=== PATIENT | male | born 1960 | race Caucasian/White ===

== ENCOUNTER 2017-06-29 16:41 | Emergency (ER) | payer SELFPAY ==
[~2017-06-29] VITALS: Ht 172.7 cm; Wt 92.7 kg
[~2017-06-29 16:41] MED LIST: MEDR4PAK PO; VIST25CA PO; ZITHTAB PO
[2017-06-29 16:54] VITALS: BP 169/82; PULSE 95; RESP 18; TEMP 98.7; O2SAT 96
[2017-06-29 17:04] VITALS: RESP 18; O2SAT 97
[2017-06-29 17:04] LABS: AUTOMATED NEUTROPHIL # 5.4 TH/MM3 (1.8-7.7); EOSINOPHIL % 1.9 % (0.0-4.0); HEMATOCRIT 48.5 % (39.0-51.0); HEMO FLAGS DIFF FINAL; LYMPH % 21.9 % (9.0-44.0); LYMPHOCYTE # 1.7 TH/MM3 (1.0-4.8); MEAN CELL VOLUME 85.7 FL (80.0-100.0); MEAN CORPUSCULAR HEMOGLOBIN 27.7 PG (27.0-34.0); MEAN CORPUSCULAR HGB CONC 32.3 % (32.0-36.0); MONO % 6.9 % (0.0-8.0); NEUT % 68.3 % (16.0-70.0); PLATELET COUNT 234 TH/MM3 (150-450); RED BLOOD COUNT 5.66 MIL/MM3 (4.50-5.90); RED CELL DISTRIBUTION WIDTH 12.6 % (11.6-17.2); WHITE BLOOD COUNT 7.9 TH/MM3 (4.0-11.0)
[2017-06-29 17:05] LABS: BASOPHIL # 0.1 TH/MM3 (0-0.2); EOSINOPHIL # 0.2 TH/MM3 (0-0.4)
[2017-06-29 17:13] LABS: CHLORIDE 104 MEQ/L (98-107); POTASSIUM 3.8 MEQ/L (3.5-5.1); SODIUM (NA) 138 MEQ/L (136-145)
[2017-06-29 17:17] LABS: ANION GAP 11 MEQ/L (5-15); BICARBONATE 22.6 MEQ/L (21.0-32.0); BLOOD UREA NITROGEN 19 MG/DL (7-18)
[2017-06-29 17:19] LABS: APTT (PATIENT) 25.7 SEC (24.3-30.1); PROTHROMBIN TIME - PATIENT 11.4 SEC (9.8-11.6)
[2017-06-29 17:20] LABS: ALT (GPT) 31 U/L (12-78); AST (GOT) 27 U/L (15-37); GLOMERULAR FILTRATION RATE 48 ML/MIN (>89)
[2017-06-29 17:21] LABS: TOTAL BILIRUBIN ADULT 0.8 MG/DL (0.2-1.0)
[2017-06-29 17:23] LABS: ALKALINE PHOSPHATASE 51 U/L (45-117); CREATINE KINASE 229 U/L (39-308)
--- NOTE | 2017-06-29 17:23 | RADRPT ---
EXAM DATE/TIME: 06/29/2017 17:10 [place] COMPARISON: No previous studies available for comparison. INDICATIONS : Chest pressure. MEDICAL HISTORY : Carcinoma, prostatic. SURGICAL HISTORY : Prostatectomy. Fusion, cervical. Knee surgery ENCOUNTER: Initial ACUITY: 1 day PAIN SCORE: 2/10 LOCATION: Bilateral chest FINDINGS: A single view of the chest demonstrates the lungs to be symmetrically aerated without evidence of mas s, infiltrate or effusion. The cardiomediastinal contours are unremarkable. Osseous structures are intact. CONCLUSION: No acute disease. Tulio Narvaez MD FACR on June 29, 2017 at 17:22 Board Certified Radiologist. This report was verified electronically.
--- NOTE | 2017-06-29 17:34 | PD ---
HPI Chief Complaint: Chest Pain Time Seen by Provider: 16:51 Travel History International Travel<30 days: No Contact w/Intl Traveler<30days: No Traveled to known affect area: No History of Present Illness HPI 57-year-old male complains of chest pain. Patient states that the chest pain started about an hour prior coming to the emergency room. Patient states the pain is substernal chest pressure with radiation to the jaw. Patient was working the jaw when that happened. Patient states that she has diaphoresis with the chest pain. Patient states that the chest pain got better since then. Patient took aspirin 325 mg, 2 tablets by mouth prior to arrival. Patient denies history hypertension or diabetes. Patient has history hyperlipidemia. Patient is a nonsmoker. Patient has family history of heart disease. On a scale from 1-10 the pain is a 1 now. Patient denies any alcohol or illicit drug abuse. Patient denies any history of chest pain in the past. PFSH Past Medical History Medical History: Denies Significant Hx Influenza Vaccination: No Past Surgical History Genitourinary Surgery: Yes (PROSTATECTOMY) Social History Alcohol Use: No Tobacco Use: No Substance Use: No Allergies-Medications (Allergen,Severity, Reaction): Coded Allergies: morphine (Unverified Allergy, Severe, slow heart reate, 06/29/17) penicillin G (Unverified Allergy, Severe, throat swelling / hives, 06/29/17) Reported Meds & Prescriptions Reported Meds & Active Scripts Active Review of Systems General / Constitutional: No: Fever Eyes: No: Visual changes HENT: No: Headaches Cardiovascular: Positive: Chest Pain or Discomfort Respiratory: No: Shortness of Breath Gastrointestinal: No: Abdominal Pain Genitourinary: No: Dysuria Musculoskeletal: No: Pain Skin: No Rash Neurologic: No: Weakness Psychiatric: No: Depression Endocrine: No: Polydipsia Hematologic/Lymphatic: No: Easy Bruising Physical Exam Narrative GENERAL: Well-nourished, well-developed patient. SKIN: Focused skin assessment warm/dry. HEAD: Normocephalic. EYES: No scleral icterus. No injection or drainage. NECK: Supple, trachea midline. No JVD or lymphadenopathy. CARDIOVASCULAR: Regular rate and rhythm without murmurs, gallops, or rubs. RESPIRATORY: Breath sounds equal bilaterally. No accessory muscle use. GASTROINTESTINAL: Abdomen soft, non-tender, nondistended. MUSCULOSKELETAL: No cyanosis, or edema. BACK: Nontender without obvious deformity. No CVA tenderness. Neurologic exam normal. Data Data Last Documented VS Vital Signs Date Time Temp Pulse Resp B/P (MAP) Pulse Ox O2 Delivery O2 Flow Rate FiO2 06/29/17 17:04 18 97 Room Air 06/29/17 16:57 95 06/29/17 16:54 98.7 169/82 (111) Orders Orders Electrocardiogram (06/29/17 16:56) Complete Blood Count With Diff (06/29/17 16:56) Comprehensive Metabolic Panel (06/29/17 16:56) Creatine Kinase (Cpk) (06/29/17 16:56) Troponin I (06/29/17 16:56) Prothrombin Time / Inr (Pt) (06/29/17 16:56) Act Partial Throm Time (Ptt) (06/29/17 16:56) Chest, Single Ap (06/29/17 16:56) Iv Access Insert/Monitor (06/29/17 16:56) Ecg Monitoring (06/29/17 16:56) Oximetry (06/29/17 16:56) Labs Laboratory Tests Test 06/29/17 16:55 White Blood Count 7.9 TH/MM3 Red Blood Count 5.66 MIL/MM3 Hemoglobin 15.7 GM/DL Hematocrit 48.5 % Mean Corpuscular Volume 85.7 FL Mean Corpuscular Hemoglobin 27.7 PG Mean Corpuscular Hemoglobin Concent 32.3 % Red Cell Distribution Width 12.6 % Platelet Count 234 TH/MM3 Mean Platelet Volume 8.9 FL Neutrophils (%) (Auto) 68.3 % Lymphocytes (%) (Auto) 21.9 % Monocytes (%) (Auto) 6.9 % Eosinophils (%) (Auto) 1.9 % Basophils (%) (Auto) 1.0 % Neutrophils # (Auto) 5.4 TH/MM3 Lymphocytes # (Auto) 1.7 TH/MM3 Monocytes # (Auto) 0.5 TH/MM3 Eosinophils # (Auto) 0.2 TH/MM3 Basophils # (Auto) 0.1 TH/MM3 CBC Comment DIFF FINAL Differential Comment Prothrombin Time 11.4 SEC Prothromb Time International Ratio 1.0 RATIO Activated Partial Thromboplast Time 25.7 SEC Blood Urea Nitrogen 19 MG/DL Creatinine 1.50 MG/DL Random Glucose 84 MG/DL Total Protein 7.7 GM/DL Albumin 4.2 GM/DL Calcium Level 9.0 MG/DL Alkaline Phosphatase 51 U/L Aspartate Amino Transf (AST/SGOT) 27 U/L Alanine Aminotransferase (ALT/SGPT) 31 U/L Total Bilirubin 0.8 MG/DL Sodium Level 138 MEQ/L Potassium Level 3.8 MEQ/L Chloride Level 104 MEQ/L Carbon Dioxide Level 22.6 MEQ/L Anion Gap 11 MEQ/L Estimat Glomerular Filtration Rate 48 ML/MIN Total Creatine Kinase 229 U/L Troponin I LESS THAN 0.02 NG/ML MDM Medical Decision Making Medical Screen Exam Complete: Yes Emergency Medical Condition: Yes Interpretation(s) 1733 PM. EKG shows sinus rhythm nonspecific ST-T wave change. Last Impressions Chest X-Ray 06/29/17 1656 Signed Impressions: Service Date/Time: Thursday, June 29, 2017 17:10 - CONCLUSION: No acute disease. Tulio Narvaez MD FACR 1733 PM. CBC within normal limit. BUN 19. Creatinine 1.50. Cardiac enzymes are normal. Differential Diagnosis Differential diagnosis including musculoskeletal, angina, RI, PE, pneumothorax. Narrative Course 57-year-old male with chest pain. Patient took aspirin prior to arrival. Patient was advised to be admitted for chest pain center. Patient refuses admission. Patient wants to go home and follow up with local signals analyst. Diagnosis Primary Impression: Chest pain Qualified Codes: R07.9 - Chest pain, unspecified Patient Instructions: General Instructions Additional Instructions: Aspirin daily. Follow-up with signals analyst. Return immediately if chest pain shortness of breath. Med/Other Pt SpecificInfo: No Meds Exist/No RX given Disposition: 01 DISCHARGE HOME Condition: Stable Jose Quigley MD Jun 29, 2017 17:34
[2017-06-29 18:10] VITALS: BP 139/81
--- NOTE | 2017-06-30 09:45 | EKG ---
Date Performed: 06/29/2017 Time Performed: 16:47:04 PTAGE: 57 years EKG: Sinus rhythm NONSPECIFIC T-WAVE ABNORMALITY BORDERLINE ECG INTERPRETATION BASED ON A DEFAULT AGE OF 39 YEARS NO PREVIOUS TRACING DOCTOR: Luis E Kerr Interpretating Date/Time 06/30/2017 09:44:17
== END 2017-06-29 18:17 | disposition home or self-care (01) ==
LOC: PHED 16:41
DX: R07.9 Chest pain, unspecified (principal); R68.84 Jaw pain; R61 Generalized hyperhidrosis; E78.5 Hyperlipidemia, unspecified; R94.31 Abnormal electrocardiogram [ECG] [EKG]; Z82.49 Family history of ischemic heart disease and other diseases of the circulatory system
CPT/HCPCS: 71010; 80053; 82550; 84484; 85025; 85610; 85730; 93005